=== PATIENT | female | born 1940 ===

== ENCOUNTER 2018-12-08 10:08 | Inpatient (IN) | payer MEDICARE, OTHER ==
--- NOTE | 2018-12-08 10:43 | ED PDOC ---
Arrival/HPI - General Chief Complaint: Altered Mental Status Time Seen by Provider: 12/08/18 10:30 Historian: Patient EM Caveat: Altered Mental Status, Other (clinical condition) - History of Present Illness Narrative History of Present Illness (Text): 12/08/18 10:40 78 year old female, whose past medical history includes hypertension, hypothyroidism, and pacemaker, presents to the emergency department accompanied by her daughter, complaining of lethargy. Daughter states as she was checking on her mom she noticed she was unresponsive, had pulled her G tube out, and felt hot and sweaty. EMS noticed the patient was hypotensive. Of note, daughter states her mom is supposed to be in hospice care, but no nurses have visited her mom, she has been taking care of her mom by herself. HPI and ROS are limited due to AMS and the patients clinical condition. PMD: Dr. Ball Time/Duration: 1-3 hours Symptom Onset: Gradual Symptom Course: Unchanged Activities at Onset: Light Context: Home Past Medical History - Provider Review Nursing Documentation Reviewed: Yes - Infectious Disease Hx of Infectious Diseases: None - Reproductive Menopause: Yes - Cardiac Hx Hypertension: Yes - Psychiatric Hx Substance Use: No - Anesthesia Hx Anesthesia: No Hx Anesthesia Reactions: No Family/Social History - Physician Review Nursing Documentation Reviewed: Yes Family/Social History: No Known Family HX Smoking Status: Unknown If Ever Smoked Hx Alcohol Use: No Hx Substance Use: No Allergies/Home Meds Allergies/Adverse Reactions: Allergies aspirin Allergy (Verified 12/08/18 10:18) RASH ketorolac [From Toradol] Allergy (Verified 12/08/18 10:18) RASH Review of Systems - Review of Systems Systems not reviewed;Unavailable: Altered Mental Status (clinical condition) Physical Exam - Physical Exam Narrative Physical Exam (Text): Constitutional: No acute distress. Head: Normocephalic. Atraumatic. Eyes: PERRL. ENT: Dry mucous membranes. Neck: Supple. Cardiovascular: Regular rate. Chest: No tenderness. Respiratory: Clear to auscultation bilaterally. GI: Soft. Nontender. Nondistended. Back: No CVA tenderness. Musculoskeletal: No tenderness or swelling of extremities. Skin: No rash. Neurologic: No focal deficit. Lethargic. Vital Signs Reviewed: Yes Vital Signs Temp Pulse Resp BP Pulse Ox 12/08/18 10:09 99.2 F 91 H 16 88/48 L 95 Temperature: Afebrile Blood Pressure: Hypotensive Pulse: Regular Respiratory Rate: Normal Appearance: Positive for: Ill-Appearing, Cachectic, Other (elderly female) Pain Distress: None Mental Status: Positive for: Lethargic Medical Decision Making ED Course and Treatment: 12/08/18 10:42 Impression: 78 year old female who presents to the emergency department with AMS and hypotension. Plan: -- Cipro -- IV fluids -- Urine culture -- Urinalysis -- Reassess and disposition Progress Notes: UA positive for UTI. Cipro IV administered. GI fellow attempted to replace gastrostomy tube but tract closed. Will require placement in hospital for further food/medication administration at home. Dr. Ball accepts to his service with Dr. Bella on consultation. - Scribe Statement The provider has reviewed the documentation as recorded by the Scribe Alexandria Mckeon Provider Scribe Attestation: All medical record entries made by the Scribe were at my direction and personally dictated by me. I have reviewed the chart and agree that the record accurately reflects my personal performance of the history, physical exam, medical decision making, and the department course for this patient. I have also personally directed, reviewed, and agree with the discharge instructions and disposition. Disposition/Present on Arrival - Present on Arrival Any Indicators Present on Arrival: Yes History of DVT/PE: No History of Uncontrolled Diabetes: No Urinary Catheter: No History of Decub. Ulcer: Yes (sacral stage 3, left hip) History Surgical Site Infection Following: None - Disposition Have Diagnosis and Disposition been Completed?: Yes Diagnosis: Gastrostomy complication Disposition: HOSPITALIZED Disposition Time: 13:04 Patient Plan: Observation Condition: STABLE Forms: [employer] (Malay)
[2018-12-08] MEDS ORDERED: Sodium Chloride 0.9% 1,000 ML IV STA (10:45)
[2018-12-08] MEDS ORDERED: Ciprofloxacin 400mg/200ml D5W 400 MG/200 ML BAG IVPB STA (10:46)
[2018-12-08 11:16] LABS: PH,URINE 7.5 (4.7-8.0); URINE BILIRUBIN LARGE (NEGATIVE); URINE BLOOD LARGE (NEGATIVE); URINE GLUCOSE (UA) 100 mg/dL (NEGATIVE); URINE LEUKOCYTE ESTERASE MODERATE Leu/uL (NEGATIVE); URINE PROTEIN >=300 mg/dL (<30 mg/dL)
[2018-12-08 11:17] LABS: URINE APPEARANCE CLOUDY (CLEAR); URINE COLOR LIGHT BROWN (YELLOW)
[2018-12-08 11:19] LABS: URINE BACTERIA LARGE /hpf; URINE RBC TNTC /hpf (0-2); URINE WBC TNTC /hpf (0-6)
--- NOTE | 2018-12-08 12:07 | CP.PCM.CON ---
History of Present Illness - History of Present Illness History of Present Illness: Palate consult requested Reason: Goals of care 78 year old female with history of HTN, hypothyroidism who was brought to ED by daughter with AMS, lethargy, weakness. Patient pulled G tube out last evening. Found to have UTI. PMHx:Hypothyroidism, HTN, cardiac arrhythmia Social History: Non smoker, no alcohol or drug use. Lives with daughter Family History: Non contributory Review of Systems: As per HPI, patient altered unable to obtain Past Patient History - Infectious Disease Hx of Infectious Diseases: None - Past Social History Smoking Status: Unknown If Ever Smoked - CARDIAC Hx Hypertension: Yes - PSYCHIATRIC Hx Substance Use: No - ANESTHESIA Hx Anesthesia: No Hx Anesthesia Reactions: No Meds Allergies/Adverse Reactions: Allergies Allergy/AdvReac Type Severity Reaction Status Date / Time aspirin Allergy RASH Verified 12/08/18 10:18 ketorolac [From Toradol] Allergy RASH Verified 12/08/18 10:18 - Medications Medications: Current Medications Sodium Chloride (Sodium Chloride 0.9%) 1,000 mls @ 200 mls/hr IV .Q5H STA Stop: 12/08/18 15:44 Last Admin: 12/08/18 10:47 Dose: 200 mls/hr Ciprofloxacin (Cipro 400mg/200ml Dsw) 400 mg in 200 mls @ 133.3 mls/hr IVPB STAT STA; Protocol Stop: 12/08/18 12:16 Last Admin: 12/08/18 11:30 Dose: 133.3 mls/hr Physical Exam - Constitutional Appears: Cachectic, Chronically Ill - Head Exam Head Exam: NORMOCEPHALIC - Eye Exam Eye Exam: Normal appearance, PERRL - ENT Exam ENT Exam: Mucous Membranes Dry - Respiratory Exam Respiratory Exam: Decreased Breath Sounds, NORMAL BREATHING PATTERN - Cardiovascular Exam Cardiovascular Exam: REGULAR RHYTHM, +S1, +S2 - GI/Abdominal Exam GI & Abdominal Exam: Diminished Bowel Sounds, Hypoactive Bowel Sounds, Soft - Extremities Exam Extremities exam: Positive for: pedal pulses present - Neurological Exam Neurological exam: Altered - Skin Skin Exam: Dry, Pallor - Additional Findings Additional findings: palliative performance scale rating 30 % Results - Vital Signs Recent Vital Signs: Last Vital Signs Temp 99.2 F 12/08/18 10:09 Pulse 91 H 12/08/18 10:09 Resp 16 01/29/19 10:09 BP 88/48 L 12/08/18 10:09 Pulse Ox 95 12/08/18 10:09 - Labs Result Diagrams: 12/08/18 13:25 12/08/18 13:25 Labs: Laboratory Results - last 24 hr 12/08/18 11:00 Urine Color Light brown Urine Appearance Cloudy Urine pH 7.5 Ur Specific [place] 1.025 Urine Protein >=300 H Urine Glucose (UA) 100 H Urine Ketones 15 H Urine Blood Large H Urine Nitrate Positive H Urine Bilirubin Large H Urine Urobilinogen 2.0 H Ur Leukocyte Esterase Moderate H Urine RBC Tntc H Urine WBC Tntc H Urine Bacteria Large Assessment & Plan - Assessment and Plan (Free Text) Assessment: 78 year old female with history of HTN, hypothyroidism,pacemaker who is seen in ED, found to have UTI,dehydration, hypotension,dislodged PEG tube Patient's daughter, Carolee Hua at beside. Daughter states she wants patient to receive hospice care. Daughter stated she has been in discussion with Dr Ball regarding this plan. Daughter states that she does not want her mother resuscitated. DNR/DNI directive signed by Carolee MAHARAJ. Hospice services explained in detail. I spoke with Dr Ball via phone, he is in agreement with plan for home hospice care and is arranging for [facility] to meet with daughter today. Time spent with daughter/ POA in goals of care and advance care planning, 20 minutes Plan: Goals of care and advanced care planning DNR/DNI IVF's as ordered Ciproflaxin 400 mg IVPB
[2018-12-08 13:43] LABS: LYMPH # 0.6 (1.2-3.4); LYMPH % 7.1 % (22.0-35.0); MEAN CELL VOLUME 102.6 fl (80.0-105.0); MEAN CORPUSCULAR HEMOGLOBIN 33.1 pg (25.0-35.0); MEAN CORPUSCULAR HGB CONC 32.3 g/dl (31.0-37.0); MEAN PLATELET VOLUME 10.2 fl (7.0-11.0); MONO # 0.5 (0.1-0.6); MONO % 5.3 % (1.0-6.0); RBC 2.72 10^6/uL (3.5-6.1); RED CELL DISTRIBUTION WIDTH 16.7 % (11.5-14.5); WHITE BLOOD COUNT 8.8 10^3/uL (4.5-11.0)
[2018-12-08 14:02] LABS: ALB/GLOB RATIO 0.9 (1.1-1.8); ALBUMIN 2.9 g/dL (3.0-4.8); ALT/SGPT 15 U/L (7-56); AST/SGOT 17 U/L (14-36); BLOOD UREA NITROGEN 74 mg/dL (7-21); CALCIUM 9.4 mg/dL (8.4-10.5)
[2018-12-08 14:22] LABS: INR 1.13; PARTIAL THROMBOPLASTIN TIME 26.8 Seconds (26.9-38.3); PROTHROMBIN TIME 12.5 SECONDS (9.4-12.5)
[2018-12-08 14:38] LABS: GFR NON-AFRICAN AMERICAN > 60
[2018-12-08] MEDS ORDERED: Morphine 2 mg/ml ISec IVP PRN (17:32)
[2018-12-08] MEDS: Sodium Chloride 0.45% 1,000 ML IV SCH (18:08)
--- NOTE | 2018-12-08 19:29 | CP.PCM.CON ---
<Golden Marcial - Last Filed: 12/08/18 19:26> History of Present Illness - History of Present Illness History of Present Illness: PGY-4 GI Fellow Consult Note The following obtained from chart review, hospital staff and family at bedside. Pt is a 78 yo Hisp femal with Dementia (non-verbal, s/p PEG January 2018), Hypothyroid, Arrhythmia s/p Pacemaker presenting from home with daughter repo rting decreased mental status, feeling hot/cold and concerns for PEG dislodgement. Daughter states that she last saw PEG in place around 0530 on 12/08/18 but thinks it may have started to dislodge prior to that time. PEG was placed in January 2018 due to advanced dementia. Daughter, Carolee Hua, is HCPOA @ . She expressed to me that her mother is DNR/DNI and does not wish for any "major procedures." Unable to obtain ROS due to clinical condition EGD for PEG at [facility] in January 2018 [facility] "many years ago in [place]" per daughter reports, unknown results MHx: See above SurgHx: PEG placement January 2018, Pacemaker Meds: Reviewed in chart FamHx: No fam h/o GI/CRC SocHx: Negative x3 All: NKDA Past Patient History - Infectious Disease Hx of Infectious Diseases: None - Past Social History Smoking Status: Unknown If Ever Smoked - CARDIAC Hx Hypertension: Yes - PSYCHIATRIC Hx Substance Use: No - ANESTHESIA Hx Anesthesia: No Hx Anesthesia Reactions: No Meds Allergies/Adverse Reactions: Allergies Allergy/AdvReac Type Severity Reaction Status Date / Time aspirin Allergy RASH Verified 12/08/18 17:44 ketorolac [From Toradol] Allergy RASH Verified 12/08/18 17:44 - Medications Medications: Current Medications Sodium Chloride (Sodium Chloride 0.45%) 1,000 mls @ 40 mls/hr IV .Q24H KATHRYN Last Admin: 12/08/18 18:08 Dose: 40 mls/hr Potassium Chloride (Potassium Chloride 10 Meq/100 Ml) 10 meq in 100 mls @ 50 mls/hr IVPB Q2H KATHRYN Stop: 12/08/18 21:44 Last Admin: 12/08/18 18:07 Dose: 50 mls/hr Ciprofloxacin (Cipro 400mg/200ml Dsw) 400 mg in 200 mls @ 133.3 mls/hr IVPB Q12 KATHRYN; Protocol Stop: 12/08/18 23:31 Morphine Sulfate (Morphine) 1 mg IVP Q3H PRN PRN Reason: Pain, moderate (4-7) Physical Exam - Constitutional Appears: Confused, Cachectic, Chronically Ill - Head Exam Head Exam: ATRAUMATIC Additional comments: temporal wasting - ENT Exam ENT Exam: Mucous Membranes Dry. absent: Mucous Membranes Moist - Respiratory Exam Respiratory Exam: NORMAL BREATHING PATTERN. absent: Accessory Muscle Use, Respiratory Distress - Cardiovascular Exam Cardiovascular Exam: Tachycardia, REGULAR RHYTHM - GI/Abdominal Exam GI & Abdominal Exam: Firm, Hypoactive Bowel Sounds. absent: Bruit, Diminished Bowel Sounds, Distended, Guarding, Hernia, Organomegaly, Pulsatile Mass, Rigid, Soft, Tenderness - Rectal Exam Rectal Exam: Deferred - Neurological Exam Neurological exam: Altered Additional comments: altered, non-verbal - Psychiatric Exam Psychiatric exam: Anxious, Flat Affect - Skin Skin Exam: Normal Color, Warm Results - Vital Signs Recent Vital Signs: Last Vital Signs Temp 98.9 F 12/08/18 17:00 Pulse 90 12/08/18 17:00 Resp 16 12/08/18 17:00 BP 80/47 L 12/08/18 17:00 Pulse Ox 97 12/08/18 17:00 - Labs Result Diagrams: 12/08/18 13:25 12/08/18 13:25 Labs: Laboratory Results - last 24 hr 12/08/18 12/08/18 12/08/18 11:00 13:25 13:25 WBC 8.8 RBC 2.72 L Hgb 9.0 L Hct 27.9 L MCV 102.6 MCH 33.1 MCHC 32.3 RDW 16.7 H Plt Count 274 MPV 10.2 Neut % (Auto) 87.6 H Lymph % (Auto) 7.1 L [place] % (Auto) 5.3 Eos % (Auto) 0.0 L Baso % (Auto) 0.0 Lymph # (Auto) 0.6 L [place] # (Auto) 0.5 Eos # (Auto) 0.0 Baso # (Auto) 0.00 Absolute Neuts (auto) 7.68 H PT INR APTT Sodium 141 Potassium 2.2 L* Chloride 108 H Carbon Dioxide 26 Anion Gap 9 L BUN 74 H Creatinine 0.9 Est GFR ( Amer) > 60 Est GFR (Non-Af Amer) > 60 Random Glucose 134 H Calcium 9.4 Total Bilirubin 0.5 AST 17 ALT 15 Alkaline Phosphatase 71 Total Protein 6.1 Albumin 2.9 L Globulin 3.3 Albumin/Globulin Ratio 0.9 L Urine Color Light brown Urine Appearance Cloudy Urine pH 7.5 Ur Specific [place] 1.025 Urine Protein >=300 H Urine Glucose (UA) 100 H Urine Ketones 15 H Urine Blood Large H Urine Nitrate Positive H Urine Bilirubin Large H Urine Urobilinogen 2.0 H Ur Leukocyte Esterase Moderate H Urine RBC Tntc H Urine WBC Tntc H Urine Bacteria Large Blood Type Blood Type Confirm Antibody Screen BBK History Checked 12/08/18 12/08/18 12/08/18 14:00 14:00 14:50 WBC RBC Hgb Hct MCV MCH MCHC RDW Plt Count MPV Neut % (Auto) Lymph % (Auto) [place] % (Auto) Eos % (Auto) Baso % (Auto) Lymph # (Auto) [place] # (Auto) Eos # (Auto) Baso # (Auto) Absolute Neuts (auto) PT 12.5 INR 1.13 APTT 26.8 L Sodium Potassium Chloride Carbon Dioxide Anion Gap BUN Creatinine Est GFR ( Amer) Est GFR (Non-Af Amer) Random Glucose Calcium Total Bilirubin AST ALT Alkaline Phosphatase Total Protein Albumin Globulin Albumin/Globulin Ratio Urine Color Urine Appearance Urine pH Ur Specific [place] Urine Protein Urine Glucose (UA) Urine Ketones Urine Blood Urine Nitrate Urine Bilirubin Urine Urobilinogen Ur Leukocyte Esterase Urine RBC Urine WBC Urine Bacteria Blood Type A NEGATIVE Blood Type Confirm A NEGATIVE Antibody Screen Negative BBK History Checked No verified bt Assessment & Plan - Assessment and Plan (Free Text) Assessment: 78 yo Hisp Female with advanced dementia (s/p PEG), Hypothyroid, Arrhythmia s/p pacemaker presenting with dislodgeed PEG. # PEG dislodgement: Attempted to replace PEG but tract had already close. Plan: - Discussed options of replacement of PEG via EGD vs placement of NG tube given plans for hospice with short term prognosis poor and family/HCPOA desire to not put patient through procedures - HCPOA/Daughter Carloee Hua prefers NG tube at this time --- Pt discussed with Dr. Bella; please see attesation for further recs/changes. <Enrique Bella - Last Filed: 12/08/18 21:28> Meds - Medications Medications: Current Medications Sodium Chloride (Sodium Chloride 0.45%) 1,000 mls @ 40 mls/hr IV .Q24H KATHRYN Last Admin: 12/08/18 18:08 Dose: 40 mls/hr Potassium Chloride (Potassium Chloride 10 Meq/100 Ml) 10 meq in 100 mls @ 50 mls/hr IVPB Q2H KATHRYN Stop: 12/08/18 21:44 Last Admin: 12/08/18 20:52 Dose: 50 mls/hr Ciprofloxacin (Cipro 400mg/200ml Dsw) 400 mg in 200 mls @ 133.3 mls/hr IVPB Q12 KATHRYN; Protocol Stop: 12/08/18 23:31 Morphine Sulfate (Morphine) 1 mg IVP Q3H PRN PRN Reason: Pain, moderate (4-7) Results - Vital Signs Recent Vital Signs: Last Vital Signs Temp 98.9 F 12/08/18 17:00 Pulse 90 12/08/18 17:00 Resp 16 12/08/18 17:00 BP 80/47 L 12/08/18 17:00 Pulse Ox 97 12/08/18 17:00 - Labs Result Diagrams: 12/08/18 13:25 12/08/18 13:25 Labs: Laboratory Results - last 24 hr 12/08/18 12/08/18 12/08/18 11:00 13:25 13:25 WBC 8.8 RBC 2.72 L Hgb 9.0 L Hct 27.9 L MCV 102.6 MCH 33.1 MCHC 32.3 RDW 16.7 H Plt Count 274 MPV 10.2 Neut % (Auto) 87.6 H Lymph % (Auto) 7.1 L [place] % (Auto) 5.3 Eos % (Auto) 0.0 L Baso % (Auto) 0.0 Lymph # (Auto) 0.6 L [place] # (Auto) 0.5 Eos # (Auto) 0.0 Baso # (Auto) 0.00 Absolute Neuts (auto) 7.68 H PT INR APTT Sodium 141 Potassium 2.2 L* Chloride 108 H Carbon Dioxide 26 Anion Gap 9 L BUN 74 H Creatinine 0.9 Est GFR ( Amer) > 60 Est GFR (Non-Af Amer) > 60 Random Glucose 134 H Calcium 9.4 Total Bilirubin 0.5 AST 17 ALT 15 Alkaline Phosphatase 71 Total Protein 6.1 Albumin 2.9 L Globulin 3.3 Albumin/Globulin Ratio 0.9 L Urine Color Light brown Urine Appearance Cloudy Urine pH 7.5 Ur Specific [place] 1.025 Urine Protein >=300 H Urine Glucose (UA) 100 H Urine Ketones 15 H Urine Blood Large H Urine Nitrate Positive H Urine Bilirubin Large H Urine Urobilinogen 2.0 H Ur Leukocyte Esterase Moderate H Urine RBC Tntc H Urine WBC Tntc H Urine Bacteria Large Blood Type Blood Type Confirm Antibody Screen BBK History Checked 12/08/18 12/08/18 12/08/18 14:00 14:00 14:50 WBC RBC Hgb Hct MCV MCH MCHC RDW Plt Count MPV Neut % (Auto) Lymph % (Auto) [place] % (Auto) Eos % (Auto) Baso % (Auto) Lymph # (Auto) [place] # (Auto) Eos # (Auto) Baso # (Auto) Absolute Neuts (auto) PT 12.5 INR 1.13 APTT 26.8 L Sodium Potassium Chloride Carbon Dioxide Anion Gap BUN Creatinine Est GFR ( Amer) Est GFR (Non-Af Amer) Random Glucose Calcium Total Bilirubin AST ALT Alkaline Phosphatase Total Protein Albumin Globulin Albumin/Globulin Ratio Urine Color Urine Appearance Urine pH Ur Specific [place] Urine Protein Urine Glucose (UA) Urine Ketones Urine Blood Urine Nitrate Urine Bilirubin Urine Urobilinogen Ur Leukocyte Esterase Urine RBC Urine WBC Urine Bacteria Blood Type A NEGATIVE Blood Type Confirm A NEGATIVE Antibody Screen Negative BBK History Checked No verified bt Attending/Attestation - Attestation I have personally seen and examined this patient.: Yes I have fully participated in the care of the patient.: Yes I have reviewed all pertinent clinical information: Yes Notes (Text): 12/08/18 21:20 I have seen and examined patient with GI fellow. Agree with above documentation with the following additions. In brief, this is a 78 year old female with history of dementia, hypothyroidism, cardiac arrhythmia s/p PPM who presents to hospital with change in mental status and feeding tube dislodgement. Patient is unable to participate in meaningful conversation, additional history obtained via chart review, discussion with nursing staff, and patient's daughter. Gas trostomy tube was initially placed in January 2018 at [facility] due to progressive dementia, daughter reports tube dislodgement earlier today, however believes it may have been partially removed even earlier. Additionally she reports change in her mother's baseline mental status with increased agitation. There is no reported abdominal pain, nausea, vomiting, fever/chills. Dementia, non-verbal at baseline Hypothyroidism Arrhythmia, s/p PPM Gastrostomy tube dislodgement - Continue with IVF hydration therapy - Continue with supportive care, monitor and replete electrolytes - Case discussed at length with patient's daughter who does not wish to have repeat endoscopy with gastrostomy tube placement. She has expressed a desire for her mother to receive home hospice without any aggressive measures. We will therefore respect family wishes, suggest NGT placement for ongoing nutritional support for time being. - Follow up palliative care recommendations - No further planned GI intervention at this time, will sign off case. Please reconsult as necessary, thank you.
[2018-12-08 21:37] VITALS: BMI 16.0
[2018-12-08] MEDS ORDERED: Influenza Vaccine 60 mcg/0.5 mL SYR (4YR UP) IM ONE (21:37)
[2018-12-08] MEDS ORDERED: Pneumococcal 23-Valent Vaccine IM ONE (21:37)
[2018-12-08] MEDS ORDERED: Ciprofloxacin 400mg/200ml D5W 400 MG/200 ML BAG IVPB SCH (22:00)
--- NOTE | 2018-12-09 01:44 | HP ---
DATE OF EXAM: 12/08/2018 HISTORY OF PRESENT ILLNESS: I know Madhavi well. I have been doing house calls on her. She has been on hospice. She has a feeding tube. She is very much failing and I have been trying to get her on hospice with the daughter. She is a 78-year-old white female who complains of lethargy, also the daughter states that she has been unresponsive and somehow pulled up the feeding tube. She is also hot and sweaty and hypotensive. PAST MEDICAL HISTORY: She has a past medical history of hypertension, hypothyroid, pacemaker, has not been doing well, and now she pulled up the feeding tube. She stopped swallowing. She has a feeding tube. FAMILY HISTORY: Unknown. SOCIAL HISTORY: I think she was a smoker at one time, but quit. No alcohol. No drugs. ALLERGIES: SHE HAS ALLERGIES TO ASPIRIN AND TORADOL. REVIEW OF SYSTEMS: She has altered mental status, I cannot really arouse her from tactile or verbal stimuli. She is not responding. Her eyes are open and is staring way. PHYSICAL EXAMINATION: VITAL SIGNS: She has a 99.2 temperature, 91 pulse, 16 respiratory rate, 88/48 blood pressure, and 95% O2 sat. GENERAL: Very ill-appearing, very cachectic, very frail, thin, and very weak looking and not moving at this time. HEENT: Head is atraumatic and normocephalic. Throat is dry. HEART: Regular rate. LUNGS: Decreased breath sounds. Very poor inspiration, but no wheezes, rhonchi, or rales. ABDOMEN: Scaphoid, decreased bowel sounds, but present. Feeding tube space is closed. I think they lost the track, we are trying to get the feeding tube placed today in the ER cannot do that, we are putting her in, we will get it done tomorrow by GI. EXTREMITIES: Have no edema, very thin, and frail. SKIN: For the most part is intact. I believe there is some red spot on her back and she has a sacral stage III on the left hip. I am also trying to get hospice involved. They met in the ER. When we get done with the feeding tube placement and she goes home, we will put her on hospice, which will give the daughter extra help. LABORATORY DATA: She had some tests done in the emergency room. She has a moderate leukocytes. White count too numerous to count. Urine bacteria. Sodium is 141, potassium is 2.2, we are going to replace with 2K BUN is 74, creatinine 0.9, GFR is greater than 60, sugar is 134, calcium is 9.4, total bili is 0.5, AST is 17, ALT is 15, alk phos 71, and total protein 6.1. INR is 1.13. White count is 8.8, hemoglobin is 9, hematocrit is 27.9, and platelets are 274. IMPRESSION AND PLAN: She was seen by the palliative care nurse. We will do a consult for Gastrointestinal for a feeding tube and hopefully we will discharge her tomorrow because she has urinary tract infection. I put her on some Cipro IV, morphine for pain, IV fluids, and we replace the potassium. Thank you very much. Geovanny Ball DO MTDD
[2018-12-09 07:56] LABS: MEAN CELL VOLUME 102.6 fl (80.0-105.0); MEAN CORPUSCULAR HEMOGLOBIN 32.8 pg (25.0-35.0); MEAN PLATELET VOLUME 10.7 fl (7.0-11.0); RBC 2.74 10^6/uL (3.5-6.1); WHITE BLOOD COUNT 9.6 10^3/uL (4.5-11.0)
[2018-12-09 08:17] LABS: ALB/GLOB RATIO 0.9 (1.1-1.8); ALBUMIN 2.9 g/dL (3.0-4.8); ALT/SGPT 20 U/L (7-56); AST/SGOT 20 U/L (14-36)
[2018-12-09 08:25] LABS: BLOOD UREA NITROGEN 56 mg/dL (7-21); CALCIUM 9.7 mg/dL (8.4-10.5); GFR NON-AFRICAN AMERICAN > 60
[2018-12-09] MEDS: Sodium Chloride 0.45% 1,000 ML IV SCH (19:05)
--- NOTE | 2018-12-10 01:28 | DS ---
HISTORY OF PRESENT ILLNESS: I am hoping she could be discharge today after they do a feeding tube placement on her. Her PEG tube fell out, they could not put her in yesterday because the tract was closed. Hopefully, GI can put it in today. She is obtunded. She is failing. She is thin and frail. My goal is to get her on hospice tomorrow at home. They already [facility], already discussed this with the daughter yesterday. PHYSICAL EXAMINATION: GENERAL: She is thin, frail, nonverbal, and may be 96 pounds. VITAL SIGNS: 98.5 temperature, 100 pulse, 102/65 blood pressure, 18 respiratory rate, and 98% O2 sat on room air. HEENT: Head is atraumatic and normocephalic. HEART: Regular rate. LUNGS: Decreased breath sounds. ABDOMEN: Soft. EXTREMITIES: No edema. LABORATORY DATA: She has a 9.6 white count, 9 hemoglobin, 28.1 hematocrit with a 280 platelets. She has a 144 sodium, potassium was 2.7, I gave her 2 more K 20 mEq. BUN 56 and creatinine 0.4, little better. GFR is greater than 60. Sugar is 116. Calcium is 9.7. Total bili is 0.6. AST is 20, ALT is 20, alk phos is 75, and total protein is 6.3. HOSPITAL COURSE: She was seen by GI hoping that we will get the feeding tube placed today and we could discharge her to [facility] and we will start hospice tomorrow on her and I put the discharge order in after the feeding tube is placed. I discussed with the daughter and [facility]. Geovanny Ball DO MTDD
[2018-12-10 08:21] LABS: HEMOGLOBIN 11.1 g/dL (12.0-16.0); MEAN CELL VOLUME 103.3 fl (80.0-105.0); MEAN CORPUSCULAR HEMOGLOBIN 33.3 pg (25.0-35.0); MEAN CORPUSCULAR HGB CONC 32.3 g/dl (31.0-37.0); MEAN PLATELET VOLUME 11.2 fl (7.0-11.0); RBC 3.33 10^6/uL (3.5-6.1); RED CELL DISTRIBUTION WIDTH 17.4 % (11.5-14.5); WHITE BLOOD COUNT 8.5 10^3/uL (4.5-11.0)
[2018-12-10 08:51] LABS: BLOOD UREA NITROGEN 42 mg/dL (7-21); CALCIUM 10.4 mg/dL (8.4-10.5); GFR NON-AFRICAN AMERICAN > 60
--- NOTE | 2018-12-10 10:09 | CP.PCM.PN ---
<Golden Marcial - Last Filed: 12/10/18 16:29> Subjective - Date & Time of Evaluation Date of Evaluation: 12/10/18 Time of Evaluation: 08:50 - Subjective Subjective: PGY-4 GI Fellow Prog Note Pt lying in bed when seen this AM. No family at bedside. No reported events overnight. Unable to obtain ROS due to clinical condition Objective - Vital Signs/Intake and Output Vital Signs (last 24 hours): Temp Pulse Resp BP Pulse Ox 97.7 F 94 H 16 107/67 97 12/10/18 06:00 12/10/18 06:00 12/10/18 06:00 12/10/18 06:00 12/10/18 06:00 Intake and Output: 12/10/18 12/10/18 06:59 18:59 Intake Total 480 Output Total 300 Balance 180 - Medications Medications: Current Medications Sodium Chloride (Sodium Chloride 0.45%) 1,000 mls @ 40 mls/hr IV .Q24H [facility] Last Admin: 12/09/18 19:05 Dose: 40 mls/hr Morphine Sulfate (Morphine) 1 mg IVP Q3H PRN PRN Reason: Pain, moderate (4-7) - Labs Labs: 12/10/18 07:50 12/10/18 07:50 PT 12.5 SECONDS (9.4-12.5) 12/08/18 14:00 INR 1.13 12/08/18 14:00 APTT 26.8 Seconds (26.9-38.3) L 12/08/18 14:00 - Constitutional Appears: Cachectic, Chronically Ill - Head Exam Head Exam: ATRAUMATIC Additional comments: temporal wasting - ENT Exam ENT Exam: Mucous Membranes Dry. absent: Mucous Membranes Moist - Respiratory Exam Respiratory Exam: NORMAL BREATHING PATTERN. absent: Accessory Muscle Use, Respiratory Distress - GI/Abdominal Exam GI & Abdominal Exam: Firm, Normal Bowel Sounds. absent: Bruit, Distended, Guarding, Rigid, Soft, Tenderness, Organomegaly, Pulsatile Mass Additional comments: scaphoid abdomen Assessment and Plan - Assessment and Plan (Free Text) Assessment: 78 yo Hisp Female with advanced dementia (s/p PEG), Hypothyroid, Arrhythmia s/p pacemaker presenting with dislodged PEG. # PEG dislodgement: Attempted to replace PEG but tract had already close. Plan: - HCPOA/Daughter Carolee Hua initially preferred NG tube, but since unable to return home with NG tube, requests PEG be replaced endoscopically --- --- Risks, benefits and alternative discussed with HCPOA --- Phone consent for EGD+PEG, Anesthesia and temporary DNR/DNI rescinded; obtained with nurse witness and forms in chart - Plan for PEG on 12/11/18 - NPO at PA except essential meds Pt discussed with Dr. Bella; please see attesation for further recs/changes. <Enrique Bella - Last Filed: 12/10/18 17:41> Objective - Vital Signs/Intake and Output Vital Signs (last 24 hours): Temp Pulse Resp BP Pulse Ox 97.4 F L 109 H 16 101/69 90 L 12/10/18 14:00 12/10/18 14:00 12/10/18 14:00 12/10/18 14:00 12/10/18 14:00 Intake and Output: 12/10/18 12/10/18 06:59 18:59 Intake Total 480 0 Output Total 300 150 Balance 180 -150 - Medications Medications: Current Medications Collagenase (Santyl) 0 gm TOP DAILY [facility] Sodium Chloride (Sodium Chloride 0.45%) 1,000 mls @ 40 mls/hr IV .Q24H [facility] Last Admin: 12/10/18 16:01 Dose: 40 mls/hr Morphine Sulfate (Morphine) 1 mg IVP Q3H PRN PRN Reason: Pain, moderate (4-7) - Labs Labs: 12/10/18 07:50 12/10/18 07:50 PT 12.5 SECONDS (9.4-12.5) 12/08/18 14:00 INR 1.13 12/08/18 14:00 APTT 26.8 Seconds (26.9-38.3) L 12/08/18 14:00
--- NOTE | 2018-12-10 11:26 | CP.PCM.CON ---
History of Present Illness - History of Present Illness History of Present Illness: Resident Consult Note for Surgery: Dr. Castelan Patient is a 78 year old female with past medical history hypertension, hypothyroidism, pacemaker placement who presented with altered mental status. Patient pulled out her G tube prior to admission. Patient was also found to have sacral ulcer and so surgery was consulted. History was obtained from prior records due to patient's mental status. Patient appears alert and responds to painful stimuli but is nonverbal and does not follow commands. PMH: HTN, hypothyroidism PSH: pacemaker Allergies: aspirin, ketorolac PMD: Dr. Ball Review of Systems - Review of Systems Systems not reviewed;Unavailable: Altered Mental Status Past Patient History - Infectious Disease Hx of Infectious Diseases: None - Past Social History Smoking Status: Unknown If Ever Smoked - CARDIAC Hx Cardiac Disorders: Yes Hx Hypercholesterolemia: Yes Hx Hypertension: Yes - PULMONARY Hx Respiratory Disorders: No - NEUROLOGICAL Hx Neurological Disorder: No - HEENT Hx HEENT Problems: No - RENAL Hx Chronic Kidney Disease: No - ENDOCRINE/METABOLIC Hx Endocrine Disorders: No - HEMATOLOGICAL/ONCOLOGICAL Hx Blood Disorders: No - INTEGUMENTARY Hx Dermatological Problems: No - MUSCULOSKELETAL/RHEUMATOLOGICAL Hx Musculoskeletal Disorders: Yes (BEDBOUND) Hx Falls: Yes - GASTROINTESTINAL Hx Gastrointestinal Disorders: Yes (GT) HX Swallowing Problems: Yes - GENITOURINARY/GYNECOLOGICAL Hx Genitourinary Disorders: Yes Hx Incontinence: Yes - PSYCHIATRIC Hx Psychophysiologic Disorder: No Hx Substance Use: No (UNKNOWN) - SURGICAL HISTORY Hx Surgeries: No - ANESTHESIA Hx Anesthesia: No Hx Anesthesia Reactions: No Meds Allergies/Adverse Reactions: Allergies Allergy/AdvReac Type Severity Reaction Status Date / Time aspirin Allergy RASH Verified 12/08/18 17:44 ketorolac [From Toradol] Allergy RASH Verified 12/08/18 17:44 - Medications Medications: Current Medications Sodium Chloride (Sodium Chloride 0.45%) 1,000 mls @ 40 mls/hr IV .Q24H [facility] Last Admin: 12/09/18 19:05 Dose: 40 mls/hr Morphine Sulfate (Morphine) 1 mg IVP Q3H PRN PRN Reason: Pain, moderate (4-7) Physical Exam - Additional Findings Additional findings: - Head Exam Head Exam: ATRAUMATIC, NORMOCEPHALIC - Eye Exam Eye Exam: EOMI. absent: Scleral icterus - ENT Exam ENT Exam: Mucous Membranes Moist - Respiratory Exam Respiratory Exam: NORMAL BREATHING PATTERN. absent: Accessory Muscle Use, Respiratory Distress - Cardiovascular Exam Cardiovascular Exam: REGULAR RHYTHM, S1 and S2. absent: Bradycardia, Tachycardia - GI/Abdominal Exam GI & Abdominal Exam: Soft. absent: Distended, Firm, Guarding, Tenderness - Back Exam Additional comments: left sacral ulcer, unstageable - Neurological Exam Neurological exam: Alert - Skin Skin Exam: Warm, Dry Results - Vital Signs Recent Vital Signs: Last Vital Signs Temp 97.7 F 12/10/18 06:00 Pulse 94 H 12/10/18 06:00 Resp 16 12/10/18 06:00 BP 107/67 12/10/18 06:00 Pulse Ox 97 12/10/18 06:00 - Labs Result Diagrams: 12/10/18 07:50 12/10/18 07:50 Labs: Laboratory Results - last 24 hr 12/10/18 12/10/18 07:50 07:50 WBC 8.5 RBC 3.33 L Hgb 11.1 L D Hct 34.4 L MCV 103.3 MCH 33.3 MCHC 32.3 RDW 17.4 H Plt Count 238 MPV 11.2 H Sodium 143 Potassium 3.9 Chloride 113 H Carbon Dioxide 23 Anion Gap 11 BUN 42 H Creatinine 0.4 L Est GFR ( Amer) > 60 Est GFR (Non-Af Amer) > 60 Random Glucose 87 Calcium 10.4 Magnesium 2.3 H Assessment & Plan - Assessment and Plan (Free Text) Assessment: Patient is a 78 year old female with past medical history hypertension, hypothyroidism, pacemaker placement who presented with altered mental status and sacral ulcer. Plan: - optifoam - air mattress - turn and reposition Q2H - further management per primary - further recommendations per Dr. Flip Paredes PGY-1 - Date & Time Date: 12/10/18 Time: 11:26
[2018-12-10] MEDS ORDERED: Collagenase 250 Units/gm Ointment(30 gm) TOP SCH (11:30)
--- NOTE | 2018-12-10 13:13 | PN ---
DATE: 12/10/2018 SUBJECTIVE: I saw the patient getting the feeding tube placed today. done yesterday, there was problem with the daughter changing her mind about having the feeding tube and not having the feeding tube and now agrees to have the feeding tube, so we lost the window to have it done yesterday. She also has a very bad decubitus ulcer, which I was not going to take care, but it is a plaque and needs to be debrided. I will call in Flip, surgical group to take a look at it. I called in Dr. Garcia to see if he would try and do the feeding today, but he refused, so I will stop this consult and I will call back Dr. Bella. I am hoping to do the feeding tube tomorrow, also get the debridement of her wounds with surgery and then home hospice. PHYSICAL EXAMINATION: VITAL SIGNS: She has a 97.7 temperature, 94 pulse, 107/67 blood pressure, 16 respiratory rate, and 97% O2 saturation. HEENT: Head is atraumatic, normocephalic. HEART: Regular rate. LUNGS: Decreased breath sounds, but clear. ABDOMEN: Soft. EXTREMITIES: No edema. She is scaphoid. She is thin, may be 90 pounds She has a large sacral ulcer. Nonverbal, but she looks at you. LABORATORY DATA: She has 8.5 white count, 11.1 hemoglobin, 34.4 hematocrit, with 238 platelets. Sodium 143, potassium is better at 3.9, BUN 42, creatinine 0.4, GFR is greater than 60, sugar is 87, and calcium is 10.4. ASSESSMENT AND PLAN: I will wait and see if Gastroenterology can do the procedure tomorrow, also if Surgery will debrided her wound and hopefully we could get her discharged tomorrow afternoon if everything goes well on hospice. Geovanny Ball DO MTDD
[2018-12-10] MEDS: Sodium Chloride 0.45% 1,000 ML IV SCH (16:01)
--- NOTE | 2018-12-10 16:08 | CON ---
DATE: 12/10/2018 HISTORY OF PRESENT ILLNESS: I reviewed the consult note of Dr. Bella from the , this is a GI fellow consult for patient Madhavi Willard. She is a 78-year-old female with history of dementia previously PEG placed on 01/2018. She currently lives with her daughter. There was an issue of PEG dislodgement which is the reason she was evaluated by the GI service here. A consult was placed for me to replace the PEG today; however, this is scheduling issues. Will not be available today and tomorrow. Above reviewed in discussion with the nurses. Currently, I think PEG for this patient is inappropriate and also that the patient has been seen by Dr. Bella as well as the GI followup very recently. Note that if the GI followup feels in conjunction with medical attending that this is an appropriate procedure, the GI fellow should perform the procedure. Again, I have evaluated this patient as well as discussed the case with nurses. I will defer this case to the GI followup as well as Dr. Bella and fellows. If it is done at all may even require another GI attending. Again, my schedule does not permit urgent performance of this procedure. Benito Garcia DO, PhD MTDD
--- NOTE | 2018-12-11 07:50 | CP.PCM.PN ---
Subjective - Date & Time of Evaluation Date of Evaluation: 12/11/18 Time of Evaluation: 07:50 - Subjective Subjective: Resident Consult Note for Surgery: Dr. Castelan Patient examined at bedside. No acute events overnight. Patient's mental status unchanged. Responds to painful stimuli but is nonverbal and does not follow commands. Objective - Vital Signs/Intake and Output Vital Signs (last 24 hours): Temp Pulse Resp BP Pulse Ox 98.9 F 128 H 18 126/73 99 12/10/18 23:15 12/10/18 23:15 12/10/18 23:15 12/10/18 23:15 12/10/18 23:15 Intake and Output: 12/11/18 12/11/18 06:59 18:59 Intake Total 0 Output Total 300 Balance -300 - Medications Medications: Current Medications Collagenase (Santyl) 0 gm TOP DAILY [facility] Last Admin: 12/10/18 14:04 Dose: 1 appl Sodium Chloride (Sodium Chloride 0.45%) 1,000 mls @ 40 mls/hr IV .Q24H [facility] Last Admin: 12/10/18 16:01 Dose: 40 mls/hr Morphine Sulfate (Morphine) 1 mg IVP Q3H PRN PRN Reason: Pain, moderate (4-7) - Labs Labs: 12/10/18 07:50 12/10/18 07:50 PT 12.5 SECONDS (9.4-12.5) 12/08/18 14:00 INR 1.13 12/08/18 14:00 APTT 26.8 Seconds (26.9-38.3) L 12/08/18 14:00 - Additional Findings Additional findings: - Head Exam Head Exam: ATRAUMATIC, NORMOCEPHALIC - Eye Exam Eye Exam: EOMI. absent: Scleral icterus - ENT Exam ENT Exam: Mucous Membranes Moist - Respiratory Exam Respiratory Exam: NORMAL BREATHING PATTERN. absent: Accessory Muscle Use, Respiratory Distress - Cardiovascular Exam Cardiovascular Exam: REGULAR RHYTHM, S1 and S2. absent: Bradycardia, Tachycardia - GI/Abdominal Exam GI & Abdominal Exam: Soft. absent: Distended, Firm, Guarding, Tenderness - Back Exam Additional comments: left sacral ulcer, unstageable - Neurological Exam Neurological exam: Alert - Skin Skin Exam: Warm, Dry Assessment and Plan - Assessment and Plan (Free Text) Assessment: Patient is a 78 year old female with past medical history hypertension, hypothyroidism, pacemaker placement who presented with altered mental status and sacral ulcer. Plan: - optifoam - air mattress - turn and reposition Q2H - further management per primary - further recommendations per Dr. Flip Paredes PGY-1
[2018-12-11 08:29] VITALS: O2SAT 100
[2018-12-11 08:35] LABS: MEAN CELL VOLUME 101.9 fl (80.0-105.0); MEAN CORPUSCULAR HEMOGLOBIN 32.6 pg (25.0-35.0); MEAN PLATELET VOLUME 10.6 fl (7.0-11.0); RBC 2.67 10^6/uL (3.5-6.1); RED CELL DISTRIBUTION WIDTH 17.4 % (11.5-14.5)
[2018-12-11 08:38] LABS: HEMOGLOBIN 8.7 g/dL (12.0-16.0)
[2018-12-11] MEDS ORDERED: ceFAZolin 1 gm in NS 1 GM/100 ML BAG IVPB ONE (09:30)
[2018-12-11] MEDS ORDERED: Digoxin 500 mcg/2ml (0.5 mg/2ml) Inj IVP STA (10:11)
[2018-12-11] MEDS ORDERED: Digoxin 500 mcg/2ml (0.5 mg/2ml) Inj IVP ONE (10:22)
[2018-12-11] MEDS ORDERED: Etomidate 20 mg/10ml Inj IV ONE (10:29)
[2018-12-11] MEDS ORDERED: Digoxin 500 mcg/2ml (0.5 mg/2ml) Inj ONE (10:31)
[2018-12-11] MEDS ORDERED: VERAPAMIL ONE (10:32)
[2018-12-11] MEDS ORDERED: Sodium Chloride 0.9% 1,000 ML IV SCH (11:15)
[2018-12-11] MEDS ORDERED: Dextrose 5%/0.45% NS 1,000 ML IV SCH (11:15)
--- NOTE | 2018-12-11 11:18 | CARD ---
APPROVED REPORT Date of service: 12/11/2018 EKG Measurement Heart [id number] <Conclusion> Sinus tachycardia ST-T Changes.
[2018-12-11 11:22] VITALS: RESP 12; TEMP 97.5
[2018-12-11 11:29] VITALS: PULSE 114
[2018-12-11 11:42] VITALS: BP 115/68
--- NOTE | 2018-12-11 19:17 | CON ---
DATE: 12/11/2018 LOCATION: The patient in room 574, bed 1. REASON FOR CONSULTATION: Right now, the patient in same-day surgery perioperative phase and emergency consult has been requested by Dr. Ball because the patient needed of the PEG tube, which has been displaced and the patient had run of SVT while waiting for the PEG tube. HISTORY OF PRESENT ILLNESS: The patient is a 78-year-old known case of dementia who has been recently have been failing in health and losing a lot of weight and being very lethargic and unresponsive and the patient have pulled out feeding gastrostomy tube and he is here to have the feeding gastrostomy tube replaced and the patient while waiting for that, had run of SVT and emergency consult has been requested by Dr. Ball for me to come and see the patient and I discussed the case with Gastroenterology and Dr. Ball and the patient is in lethargic state and not given any history. The patient apparently has a history of hypertension, hypothyroid, pacemaker insertion, dementia, status post feeding gastrostomy tube because the patient stopped swallowing. The patient has lost significant weight and he looks very cachectic. PAST MEDICAL HISTORY: The patient has a history of hypertension, hypothyroid, pacemaker, dementia, and status post gastrostomy tube, which the patient has pulled out now. SOCIAL HISTORY: The patient has no history of alcohol drinking in the past, there is a possibility that the patient had smoked in the past. ALLERGIES: THE PATIENT IS ALLERGIC TO ASPIRIN AND TORADOL. REVIEW OF SYSTEMS: The patient apparently not in any acute distress, but she is drowsy and she looks like cachectic and dehydrated. MEDICATIONS: List of home medications is not available. PHYSICAL EXAMINATION: VITAL SIGNS: Blood pressure 91/51, when she came to same-day surgery, blood pressure onetime went down to 84/50, and now the blood pressure is 98/60; pulse is about 110 per minute; and temperature is 96.9. HEENT: Head is normocephalic. Eyes; pupils normal. Conjunctivae pale. NECK: JVP low. The patient is markedly dehydrated. SKIN: Very dry. LUNGS: Clear. CARDIOVASCULAR: S1 and S2. Pacemaker left upper chest in place. ABDOMEN: As mentioned, gastrostomy tube has been pulled out. EXTREMITIES: No clubbing. No cyanosis. LABORATORY DATA: WBC 11, hemoglobin 8.7, hematocrit 27.2, and platelets 269. Prothrombin time 12.5, INR 1.13, and PTT 26.8. Sodium 143, potassium 3.9, BUN 42, creatinine 0.4, initially the patient had potassium 2.2, but now potassium is normal today at 3.9. Magnesium 2.3. Random glucose 87, protein 63, and albumin 2.9. No chest x-ray has been done. No EKG done, I am going to do a stat EKG, I just did a stat EKG, it shows sinus tachycardia with ST-T changes. DIAGNOSES: Dehydration, status post pacemaker insertion, status post pulling the gastrostomy tube, history of hypertension, history of hypothyroidism, anemia, renal dysfunction, and Alzheimer's dementia advanced. The patient is do not resuscitate and family is concerning to put her in a hospice program, but needed percutaneous endoscopic gastrostomy tube. PLAN: I did stat EKG, it showed sinus tachycardia, SVT changes. No evidence of any acute ID. The patient's condition is very poor and she can go for PEG tube infection with high risk, but we have no choice just to proceed with the PEG tube because that is the only thing we can offer at present due to condition of the patient and family is willing to put her on hospice once the PEG tube is inserted. The patient is DNI/DNR and I gave the patient digoxin 0.25 IV stat and if need, she can have another dose of 0.25 stat. I discussed with the Gastroenterology and I also discussed with anesthesiologist and once PEG tube is in, the patient can have Lopressor 25 b.i.d. The patient is also markedly dehydrated, I open up the 5% normal saline 500 mL bag wide open to help her with the blood pressure. We will continue to follow with you and I discussed with the Gastroenterology and anesthesiologist to proceed with the placement of feeding gastrostomy tube. Efrain Greco MD
--- NOTE | 2018-12-12 00:48 | DS ---
HISTORY OF PRESENT ILLNESS: She was here for a feeding tube being pulled out which was replaced today. Also, she has a sacral ulcer. She is going to go home today on home hospice. She has had PEG tube feedings and wound care and she will be seen on house calls. She will be on some Santyl for her sacral wound and some Keflex for a week for her wound. PHYSICAL EXAMINATION: VITAL SIGNS: She has a 96.9 temperature, 119 pulse, 107/58 blood pressure, 25 respiratory rate, 100 O2 sat on room air. HEENT: Head is atraumatic, normocephalic, very sunken frail, thin. HEART: Regular rate. LUNGS: Decreased breath sounds. ABDOMEN: Soft, scaphoid. EXTREMITIES: No edema. ASSESSMENT AND PLAN: She is on hospice. She is failing and we will get her home today on hospice. She has a urinary tract infection and she pulled out her feeding tube. Geovanny Ball DO MTDD
== END 2018-12-11 19:08 | disposition hospice, home (50) | DRG 394 ==
LOC: ED 10:08 → ERH 12:59 → 5RSO 16:48 → OBSVTOIN 12-10 09:59
PROVIDERS: ADMIT Family Medicine; ATTEND Family Medicine
PROC: 0DJ08ZZ Inspection of Upper Intestinal Tract, Via Natural or Artificial Opening Endoscopic (ICD-10-PCS; 2018-12-11)
PROC: 0DH63UZ Insertion of Feeding Device into Stomach, Percutaneous Approach (ICD-10-PCS; principal; 2018-12-11 10:15)
DX: K94.23 Gastrostomy malfunction (principal); I47.1 Supraventricular tachycardia; N39.0 Urinary tract infection, site not specified; R64 Cachexia; K22.10 Ulcer of esophagus without bleeding; K26.9 Duodenal ulcer, unspecified as acute or chronic, without hemorrhage or perforation; L89.150 Pressure ulcer of sacral region, unstageable; E03.9 Hypothyroidism, unspecified; E78.00 Pure hypercholesterolemia, unspecified; E86.0 Dehydration; R13.10 Dysphagia, unspecified; K29.70 Gastritis, unspecified, without bleeding; G30.9 Alzheimer's disease, unspecified; F02.80 Dementia in other diseases classified elsewhere, unspecified severity, without behavioral disturbance, psychotic disturbance, mood disturbance, and anxiety; I10 Essential (primary) hypertension; Z51.5 Encounter for palliative care; Z87.891 Personal history of nicotine dependence; Z95.0 Presence of cardiac pacemaker; Z88.6 Allergy status to analgesic agent; Z66 Do not resuscitate